=== PATIENT | male | born 1945 | race Caucasian/White ===

== ENCOUNTER 2019-06-28 12:55 | Emergency (ER) | payer MEDICARE, SELFPAY ==
[2019-06-28 13:10] VITALS: BP 193/89; PULSE 62; RESP 14; TEMP 36.7; O2SAT 95; BMI 27.8
--- NOTE | 2019-06-28 13:14 | PC.NURSE ---
Pt denies injury,pt takes plavix and his bp has been elevated
[2019-06-28] MEDS: SILVER NITRATE STICK 1 EACH TOP (13:48)
[2019-06-28] MEDS: OXYMETAZOLINE NASAL SPRAY 30 ML 2 SPRAYS NASAL (13:48)
[2019-06-28 14:40] LABS: Add Manual Diff / Slide Review NO; Basophils Absolute Auto 100 /uL (0-100); Basophils Percent Auto 0.8 % (0-2); Eosinophils Absolute Auto 200 /uL (0-450); Eosinophils Percent Auto 3.1 % (2-4); Hematocrit 39.5 % (41-53); Hemoglobin 13.8 g/dL (13.5-17.5); Lymphocytes Absolute Auto 1100 /uL (1100-4500); Lymphocytes Percent Auto 15.9 % (25-40); Mean Corpuscular Hemoglobin 33.3 PG (26-34); Mean Corpuscular Volume 95.1 fL (80-100); Monocytes Absolute Auto 600 /uL (0-900); Monocytes Percent Auto 8.4 % (3-14); Neutrophils Absolute Auto 5000 /uL (1500-7000); Neutrophils Percent Auto 71.8 % (50-75); Platelet Count 184 X10^3/uL (150-400); Red Blood Cell Count 4.15 X10^6/uL (4.5-5.9); Red Cell Distribution Width 12.6 % (11.6-14.8)
[2019-06-28 14:45] VITALS: BP 151/74; PULSE 66; O2SAT 98
--- NOTE | 2019-06-28 23:50 | ED.EPISTAXIS ---
HPI - Epistaxis <MIKE TrujilloP - Last Filed: 06/29/19 00:16> General Chief complaint: Nasal Problem Stated complaint: bleeding nose/ bp high Time Seen by Provider: 06/28/19 13:24 Source: patient Mode of arrival: Ambulatory Limitations: no limitations History of Present Illness HPI Narrative: This is a 73 year male, nonsmoker, with medical history of hypertension, cardiac catheterization who takes Plavix daily, presents to ED with significant other with chief complain of severe epistaxis which started early in the morning. Patient reports similar epistaxis occurred 2 years ago which required cauterization. Patient attempted to stop bleeding by direct pressure and nasal packing but unsucessful. Patient states a large bath towel was pretty soaked with nose bleed. He denies chest pain, breathing difficulty, dizziness. Patient contributes his epistaxis to elevated blood pressure. Patient reports since for start turn was off the market, his primary care physician has been replacing this medication without other ARB agent(s) but has been having difficult time control hypertension. Patient has been taking clonidine as needed for severely elevated blood pressure. Patient denies trauma, injury to nose. Related Data Home Medications Medication Instructions Recorded Confirmed Plavix 06/28/19 Previous Rx's Medication Instructions Recorded clonidine HCl 0.1 mg PO Q6H PRN 2 Days #20 tab 06/28/19 valsartan 160 mg PO BID #14 tab 06/28/19 Allergies Allergy/AdvReac Type Severity Reaction Status Date / Time No Known Drug Allergies Allergy Verified 06/28/19 13:10 Review of Systems <LUDMILA Trujillo - Last Filed: 06/29/19 00:16> Review of Systems Narrative: General: Denies fever, chills, fatigue, malaise, sweats. HEENT: See HPI Respiratory: Denies dyspnea, cough, wheezing, hemoptysis, sputum. Cardiovascular: Denies chest pain, palpitations, orthopnea, edema. Gastrointestinal: Denies nausea, vomiting, abdominal pain, diarrhea, constipation, melena. : Denies dysuria, frequency, incontinence, hematuria, urinary retention. Musculoskeletal: Denies weakness, joint pain or bony pain. Skin: Denies rash, skin lesions, or other. Neurologic: Denies weakness, headache, numbness, change in speech, confusion, seizures, incoordination. Psychiatric: No concerning psychosocial issues. 12-point review of systems is negative except for those stated above. Patient History <LUDMILA Trujillo - Last Filed: 06/29/19 00:16> Medical History Hypertension (Acute) Surgical History H/O cardiac catheterization (Acute) Social History Smoking Status: Unknown if ever smoked Smoking Status: Unknown if ever smoked alcohol intake frequency: 3 or more drinks per day Substance Use Type: does not use Exam <LUDMILA Trujillo - Last Filed: 06/29/19 00:16> Narrative Exam Narrative: General appearance: well developed, well nourished, in no acute distress. Head: normocephalic, atraumatic, no scalp lesions, non-tender. ENT: Hearing grossly intact. Nose copious bleeding from left anterior near septum at 07 o'clock. No septal hematoma or deviation but small size scar near the bleeding site. Turbinate without erythema or swelling. Facial sinuses nontender to palpate. Mucous membrane moist, no mucosal lesion. Throat without erythema, tonsillar hypertrophy or exudate. Uvula in midline, airway patent. Neck/Thyroid: neck supple, full range of motion, no visible masses or meningeal signs. No JVD, non-tender without lymphadenopathy. Skin: no suspicious rashes, lesions over visible areas. Warm and dry and appropriate color for ethnicity. Heart: no clubbing, no cyanosis, no edema. S1 and S2 normal. RRR w/o murmurs, clicks, or bruits. Lungs: Breathing even and unlabored. No stridor. No accessory muscles used. Able to speak in full sentences. Chest: normal shape and expansion. Abdomen: non-obese, non-distended. Neurologic: alert and oriented. Cognitive exam, [employer] and PNS grossly intact on informal exam. Psych: good eye contact, normal affect. Initial Vital Signs Initial Vital Signs: Vital Signs Temperature 98.0 F 06/28/19 13:10 Pulse Rate 62 06/28/19 13:10 Respiratory Rate 14 06/28/19 13:10 Blood Pressure 193/89 H 06/28/19 13:10 Pulse Oximetry 95 06/28/19 13:10 <Josee Marvin DO - Last Filed: 07/01/19 11:44> Initial Vital Signs Initial Vital Signs: Vital Signs Temperature 98.0 F 06/28/19 13:10 Pulse Rate 62 06/28/19 13:10 Respiratory Rate 14 06/28/19 13:10 Blood Pressure 193/89 H 06/28/19 13:10 Pulse Oximetry 95 06/28/19 13:10 Procedures <Ashkan LUDMILA Leblanc - Last Filed: 06/29/19 00:16> Epistaxis Control Time Out Performed: Yes Nostril: left Nose Prepped With: oxymetazoline Direct Inspection: yes Clots Removed by: blowing nose Cautery Used: silver nitrate Patient Tolerated Procedure: well Scores <Ashkan LUDMILA Leblanc - Last Filed: 06/29/19 00:16> GCS [place] coma scale eye opening: Spontaneous [place] coma scale verbal response: Orientated Mg coma scale motor response: Obey commands Mg coma scale total score: 15 Course <Ashkan LUDMILA Leblanc - Last Filed: 06/29/19 00:16> Orders Ordered: Discontinued Medications Oxymetazoline HCl (Afrin) 2 sprays NASAL NOW ONE Stop: 06/28/19 13:35 Last Admin: 06/28/19 13:48 Dose: 2 sprays Documented by: RIA Silver Nitrate/Potassium Nitrate (Silver Nitrate Stick) 1 each TOP NOW ONE Stop: 06/28/19 13:35 Last Admin: 06/28/19 13:48 Dose: 1 each Documented by: RIA <Josee Marvin DO - Last Filed: 07/01/19 11:44> Orders Ordered: Discontinued Medications Oxymetazoline HCl (Afrin) 2 sprays NASAL NOW ONE Stop: 06/28/19 13:35 Last Admin: 06/28/19 13:48 Dose: 2 sprays Documented by: RIA Silver Nitrate/Potassium Nitrate (Silver Nitrate Stick) 1 each TOP NOW ONE Stop: 06/28/19 13:35 Last Admin: 06/28/19 13:48 Dose: 1 each Documented by: RIA MDM - Epistaxis <Ashkan Lelbanc [facility] - Last Filed: 06/29/19 00:16> Differential Diagnosis Differential diagnosis: Likely anterior epistaxis Medical Records Attestation: I reviewed the patient's medical records. Lab Data Attestation: I reviewed the patient's lab results. Result diagrams: 06/28/19 14:30 Labs: Lab Results 06/28/19 Range/Units 14:30 WBC 7.0 (4.5-11.0) X10^3/uL RBC 4.15 L (4.5-5.9) X10^6/uL Hgb 13.8 (13.5-17.5) g/dL Hct 39.5 L (41-53) % MCV 95.1 (80-100) fL MCH 33.3 (26-34) PG MCHC 35.0 (30-36) % RDW 12.6 (11.6-14.8) % Plt Count 184 (150-400) X10^3/uL Neut % (Auto) 71.8 (50-75) % Lymph % (Auto) 15.9 L (25-40) % [place] % (Auto) 8.4 (3-14) % Eos % (Auto) 3.1 (2-4) % Baso % (Auto) 0.8 (0-2) % Neut # (Auto) 5000 (3523-1167) /uL Lymph # (Auto) 1100 (8440-2006) /uL [place] # (Auto) 600 (0-900) /uL Eos # (Auto) 200 (0-450) /uL Baso # (Auto) 100 (0-100) /uL MDM Narrative Medical decision making narrative: This is a 73 year old male who presents to ED with obvious amount of epistaxis for several hours before coming into ED. please see procedure note for epistaxis control. H&H is stable as 13.8/39.5. Post-procedure, there was scant amount of recurring bleeding which has stopped. Patient requested refilling Valsartan which worked well to control his hypertension and additional dose of clonidine as needed dose since his primary care physician is located in [place]. Patient states he lives in [facility] and also lives in [place]. Patient discharged to home with 1 week duration of Valsartan and advised to contact his primary care physician to discuss refill. Rx of clonidine provided. Return precautions were discussed with the patient and patient verbalized understanding and in agreement with treatment plan. Later on the Pharmacy has contacted to inform that Valsartan is still no longer available. Requested the pharmacy to inform the patient the reason and to contact the PCP to further arrange his hypertensive medication refill. <Josee Marvin, DO - Last Filed: 07/01/19 11:44> Lab Data Labs: Lab Results 06/28/19 Range/Units 14:30 WBC 7.0 (4.5-11.0) X10^3/uL RBC 4.15 L (4.5-5.9) X10^6/uL Hgb 13.8 (13.5-17.5) g/dL Hct 39.5 L (41-53) % MCV 95.1 (80-100) fL MCH 33.3 (26-34) PG MCHC 35.0 (30-36) % RDW 12.6 (11.6-14.8) % Plt Count 184 (150-400) X10^3/uL Neut % (Auto) 71.8 (50-75) % Lymph % (Auto) 15.9 L (25-40) % [place] % (Auto) 8.4 (3-14) % Eos % (Auto) 3.1 (2-4) % Baso % (Auto) 0.8 (0-2) % Neut # (Auto) 5000 (6160-8534) /uL Lymph # (Auto) 1100 (9426-7690) /uL [place] # (Auto) 600 (0-900) /uL Eos # (Auto) 200 (0-450) /uL Baso # (Auto) 100 (0-100) /uL Discharge Plan Departure Patient Disposition: Home Clinical Impression: Epistaxis, Elevated blood pressure reading with diagnosis of hypertension Discharge Date/Time: 06/28/19 15:41 Instructions: Essential Hypertension, DI for Nosebleed Activity Restrictions/Additional Instructions: You have been diagnosed with [nose bleed likely from elevated blood pressure. Nose bleed has been stopped using Afrin and cauterization with silver nitrate.]. What to do: *Take your medications as directed. One week duration of Valsartan 160 mg BID dose and clonidine PRN HTN medications have been transmitted to [facility] in [facility]. Please contact your primary care physician in [place] to discuss this and further refill of your medications. *Follow up with your primary care provider in 2-3 days, call for an appointment. Let them know you were seen in the ED and that we asked you to be seen in follow up. *Return to ED if you have any new, worsening, or concerning symptoms, such as [recurring nose bleed, chest pain, breathing difficulty, feeling like faint, lightheadedness, pain, fever or any acute concerns]. Prescriptions: New clonidine HCl 0.1 mg tablet 0.1 mg PO Q6H PRN (Reason: hypertensive emergency) 2 Days Qty: 20 RF: 0 valsartan 160 mg tablet 160 mg PO BID Qty: 14 RF: 0 No Action Plavix RF: 0
== END 2019-06-28 15:41 | disposition home or self-care (01) ==
PROVIDERS: Emergency Provider Nurse Practitioner Family
DX: R04.0 Epistaxis (principal); I10 Essential (primary) hypertension
CPT/HCPCS: 30901; 36415; 85025; 99282; 99283